=== PATIENT | female | born 1995 | race Caucasian/White ===

== ENCOUNTER 2023-12-11 20:33 | Emergency (ER) | payer MEDICAID ==
[~2023-12-11] VITALS: Ht 170.2 cm; Wt 82.0 kg
[2023-12-11 20:36] VITALS: BP 115/64; PULSE 85; RESP 19; O2SAT 100
[2023-12-12] MEDS ORDERED: NAPR-1176 MT (00:40)
[2023-12-12] MEDS ORDERED: LIDO700A15 TP (00:40)
[2023-12-12 02:59] VITALS: TEMP 98.6
[2023-12-12] MEDS: ACETAMINOPHEN 500MG TABLET PO ONE (02:59)
== END 2023-12-12 03:14 | disposition home or self-care (01) ==
LOC: ER 20:33
DX: S90.02XA Contusion of left ankle, initial encounter (principal); F41.9 Anxiety disorder, unspecified; F32.9 Major depressive disorder, single episode, unspecified; K21.9 Gastro-esophageal reflux disease without esophagitis; X58.XXXA Exposure to other specified factors, initial encounter; Y93.89 Activity, other specified; Y92.89 Other specified places as the place of occurrence of the external cause; Y99.8 Other external cause status
CPT/HCPCS: 73610; 99283; Z7610